=== PATIENT | male | born 1955 | race Caucasian/White ===

== ENCOUNTER 2017-04-15 21:37 | Emergency (ER) | payer OTHER ==
[2017-04-15 22:11] VITALS: BMI 33.4
[2017-04-15] MEDS ORDERED: Amoxicillin-Clav 875-125 mg Tab PO STA (22:36)
[2017-04-15] MEDS ORDERED: TDAP Vaccine 0.5 mL Syr IM ONE (22:36)
--- NOTE | 2017-04-15 22:39 | ED PDOC ---
Arrival/HPI - General Chief Complaint: Bite Time Seen by Provider: 04/15/17 22:35 Historian: Patient, Spouse - History of Present Illness Narrative History of Present Illness (Text): 04/15/17 22:37 62-year-old male with a history of diabetes presents today status post dog bite. Patient states he was trying to put a collar around his dog and his dog bit him. Patient states that the dog is never around any other dogs is always inside the house. Patient states he has a history of diabetes. He is complaining of minimal pain to the abrasion/laceration site. No medications taken for pain at home. He is refusing any medications in the emergency room. He is unsure of his last tetanus shot. He denies any allergies to medications. Patient is complaining of laceration to the volar aspect of the right wrist and abrasions to the dorsal aspect of the right wrist as well as 2 small abrasions to the dorsal aspect of the left hand. Time/Duration: Prior to Arrival Symptom Onset: Sudden Symptom Course: Improving Quality: Throbbing Severity Level: 2 Past Medical History - Provider Review Nursing Documentation Reviewed: Yes - Travel History Have you recently traveled outside [place] w/in the past 3 mons?: No - Infectious Disease Hx of Infectious Diseases: None - Tetanus Immunization Tetanus Immunization: Unknown - Cardiac Hx Hypertension: Yes - Endocrine/Metabolic Hx Diabetes Mellitus Type 2: Yes - Psychiatric Hx Depression: No Hx Emotional Abuse: No Hx Physical Abuse: No Hx Substance Use: No - Surgical History Hx Cholecystectomy: Yes Hx Eye Surgery: Yes Hx Orthopedic Surgery: Yes - Anesthesia Hx Anesthesia: Yes Hx Anesthesia Reactions: No Hx Malignant Hyperthermia: No - Suicidal Assessment Feels Threatened In Home Enviroment: No Family/Social History - Physician Review Nursing Documentation Reviewed: Yes Family/Social History: Unknown Family HX Smoking Status: Former Smoker Hx Alcohol Use: No Hx Substance Use: No Allergies/Home Meds Allergies/Adverse Reactions: Allergies No Known Allergies Allergy (Verified 04/15/17 22:16) Home Medications: Home Meds Medication Instructions Recorded Confirmed Hydrochlorothiazide/Valsarta 1 tab PO DAILY 07/21/13 07/21/13 [Diovan Hct 12.5 mg-160 mg] Tamsulosin [Flomax] 1 tab PO DAILY 07/21/13 07/21/13 [id number] CD [Cardizem CD] 1 tab PO DAILY 07/21/13 07/21/13 Review of Systems - Review of Systems Constitutional: absent: Fatigue, Fevers Respiratory: absent: SOB, Cough Cardiovascular: absent: Chest Pain, Palpitations Gastrointestinal: absent: Nausea, Vomiting Musculoskeletal: Arthralgias Skin: Laceration Neurological: absent: Headache, Dizziness Physical Exam Vital Signs Reviewed: Yes Vital Signs Temp Pulse Resp BP Pulse Ox 04/15/17 22:11 98 F 56 L 18 139/82 96 Temperature: Afebrile Blood Pressure: Normal Pulse: Regular Respiratory Rate: Normal Appearance: Positive for: Well-Appearing, Non-Toxic, Comfortable Pain Distress: None Mental Status: Positive for: Alert and Oriented X 3 - Systems Exam Head: Present: Atraumatic Mouth: Present: Moist Mucous Membranes Respiratory/Chest: Present: Clear to Auscultation, Good Air Exchange. No: Respiratory Distress, Accessory Muscle Use Cardiovascular: Present: Regular Rate and Rhythm, Normal S1, S2. No: Murmurs Upper Extremity: Present: Normal ROM, NORMAL PULSES, Tenderness (right wrist; there is a 0.5cm non gaping laceration to the volar aspect of the wrist; no active bleeding; there are multiple superficial abrasions noted to the dorsal aspect of the right wrist. there are 2 small abrasions noted to the left hand, small puncture wound to left dorsal hand; no active bleeding. full rom of all extremities. sensation and distal pulses intact. cap refill <2. no erythema; no edema, no ecchymosis. ), Neurovascularly Intact, Capillary Refill < 2s. No: Swelling, Erythema, Deformity Neurological: Present: GCS=15 Skin: Present: Warm, Dry Psychiatric: Present: Alert, Oriented x 3 Medical Decision Making ED Course and Treatment: 04/15/17 22:36 Patient is nontoxic well-appearing in no distress. Vital signs are stable. 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 Tetanus updated pt refusing medications for pain in er. Wound irrigated well with copious amounts of high-pressure irrigation using normal saline Augmentin 875 mg p.o. Patient was advised to keep the wound clean and dry, apply bacitracin twice daily, take antibiotics as prescribed and return immediately if symptoms worsen persist or if new symptoms develop Patient verbalized full agreement with and understanding of discharge instructions. States that he agrees with the plan and disposition. Verbalized and repeated discharge instructions and plan. I have given the patient opportunity to ask any additional questions. all aspects of this case were discussed the attending of record. Impression: Dog bite, laceration, wrist Motrin every 6 hours as needed for pain Augmentin: Twice daily x10 days Keep the wound clean and dry, apply bacitracin twice daily Return immediately if symptoms worsen persist or if new symptoms develop: High fevers, increasing pain, increasing redness, swelling or if any other concerning symptoms develop. Disposition/Present on Arrival - Present on Arrival Any Indicators Present on Arrival: No History of DVT/PE: No History of Uncontrolled Diabetes: No Urinary Catheter: No History of Decub. Ulcer: No History Surgical Site Infection Following: None - Disposition Have Diagnosis and Disposition been Completed?: Yes Diagnosis: Dog bite, Wrist laceration, Puncture wound Disposition: HOME/ ROUTINE Disposition Time: 22:43 Patient Plan: Discharge Condition: GOOD Discharge Instructions (ExitCare): Animal Bite (ED), Laceration Without Closure (ED) Additional Instructions: Motrin every 6 hours as needed for pain Augmentin: Twice daily x10 days Keep the wound clean and dry, apply bacitracin twice daily Return immediately if symptoms worsen persist or if new symptoms develop: High fevers, increasing pain, increasing redness, swelling or if any other concerning symptoms develop. Prescriptions: Amoxicillin/Clavulanate [Augmentin 875 MG-125 MG] 1 tab PO BID #20 tab Bacitracin OINT 1 applic TP BID #1 tube Referrals: Jayashree Ratliff MD [Primary Care Provider] - Follow up with primary Forms: WORK NOTE
[2017-04-15 23:05] VITALS: BP 132/80; TEMP 98.1; O2SAT 99
[2017-04-15 23:06] VITALS: PULSE 80; RESP 16
== END 2017-04-15 23:06 | disposition home or self-care (01) ==
LOC: ED 21:37
DX: S61.511A Laceration without foreign body of right wrist, initial encounter (principal); W54.0XXA Bitten by dog, initial encounter; Y93.K9 Activity, other involving animal care; Y92.89 Other specified places as the place of occurrence of the external cause; Z23 Encounter for immunization